=== PATIENT | female | born 1980 | race Caucasian/White ===

== ENCOUNTER 2020-08-15 14:54 | Emergency (ER) | payer BC ==
[~2020-08-15] VITALS: Ht 172.7 cm; Wt 95.2 kg
[2020-08-15 15:35] VITALS: BP 145/72
[2020-08-15] MEDS ORDERED: BACI28.43 TP (15:36)
--- NOTE | 2020-08-15 15:36 | PHYS DOC ---
Adult General Chief Complaint Chief Complaint: OTHER COMPLAINTS HPI HPI Patient is a 40-year-old female who presents to the emergency room stating that there flies coming out of her face and nose. Patient states that she knows there is a fly buried under her left nostril because she killed it right before arrival. She states that she has flies come out of her face, nose, anus. She states this is been ongoing for the last 2 years. She states she has seen her primary care doctor multiple times for this and was sent to a pharmacy grad intern. She states that people continue to tell her that she has mental health issues and that there are no flies coming out of her face. She believes that she caught some kind of disease after having an affair on her with a man from [place]. She states that the flies mostly come out of her after she finally break down has sex with her . Review of Systems Review of Systems Negative other than noted Physical Exam Physical Exam General: Awake, alert, mild distress. Well Nourished, well hydrated. Cooperative HEENT: Atraumatic, EOMI, PERRL, airway patent, moist oral mucosa, multiple crusted over lesions consistent with picking on the right side of the face, bilateral nares are normal without any lesions or parasites Neck: Supple, trachea midline Respiratory: CTA bilaterally, normal effort, no wheezing/crackles CV: RRR, no murmur, cap refill <2 GI: Soft, nondistended, nontender, no masses MSK: No obvious deformities Skin: Warm, dry, intact Neuro: A&O x3, speech NL, sensory and motor grossly intact, no focal deficits Psych: Anxious, delusional EKG EKG [] Radiology/Procedures Radiology/Procedures [] Heart Score Risk Factors: Risk Factors: DM, Current or recent (<one month) smoker, HTN, HLP, family history of CAD, obesity. Risk Scores: Risk Factors: DM, Current or recent (<one month) smoker, HTN, HLP, family history of CAD, obesity. Course & Med Decision Making Course & Med Decision Making Pertinent Labs and Imaging studies reviewed. (See chart for details) Patient is a 40-year-old female who presents to the emergency room stating that she has flies coming out of her face and tapeworms coming out of her hair. I did an examination on her and at this time there does not appear to be any parasites. Patient is very insistent that there is a parasite in her left nare, however her nare appears completely normal and there is no signs of a parasite or lesion within her left nare. Patient became very upset when I told her that I cannot test her for parasites through the emergency room. I discussed with her that this is something she will need to do through her primary care physician. I have discussed with her that I will give her Bactroban for the lesions on her face that appear to be getting infected from picking. Patient states that she is going to jabari me and every other doctor who has not helped her. At this time patient does appear to be delusional but she does not appear to be a harm to herself or others. Does not appear that she has been cutting into her skin or trying to remove the parasites. Patient's test results and vitals while in the ED were fully reviewed and discussed with the patient. Patient is stable and at this time does not need admission to the hospital. We have discussed strict return precautions and the importance of following up with their Primary Care Physician. Patient stated understanding and was given an opportunity to ask any questions. Dragon Disclaimer Dragon Disclaimer This electronic medical record was generated, in whole or in part, using a voice recognition dictation system. Departure Departure: Impression: Primary Impression: Cellulitis, face Additional Impression: Morgellons disease Disposition: 01 DC HOME SELF CARE/HOMELESS Condition: STABLE Referrals: PCP,NO (PCP) Patient Instructions: Wound Infection Scripts Bacitracin (Bacitracin) 28.4 Gm Oint...g. 28.4 GM TP Q8H for lesions for 7 Days, #1 [facility] [place] CATALINO PERSON MD 08/15/20 Problem Qualifiers CATALINO PERSON MD Aug 15, 2020 15:36
== END 2020-08-15 15:45 | disposition home or self-care (01) ==
LOC: ER 14:54
DX: L03.211 Cellulitis of face (principal); L98.8 Other specified disorders of the skin and subcutaneous tissue
CPT/HCPCS: 99282; 99283